=== PATIENT | male | born 1950 | race Caucasian/White ===

== ENCOUNTER 2019-11-01 05:23 | Day surgery (SDC) | payer MEDICARE, OTHER ==
[2019-11-01] VITALS (7 sets, daily range): BP systolic 111–130; BP diastolic 61–69; PULSE 58–74; TEMP 98–98.1
[~2019-11-01] VITALS: Ht 177.8 cm; Wt 96.6 kg
[~2019-11-01 05:23] MED LIST: ASPIRIN 81M81 MG/TA2 PO; ELIQUIS 5MG PO; FLEXERIL 1010 MG/TAB PO; LIPITOR 80MG80 MG PO; LOPRESSOR 225 MG/TAB PO; NORCO 325 MG-51 TAB PO; PLAVIX 75MG TAB75 MG PO; VALIUM 5MG T5 MG/TAB PO; VASOTEC 2.2.5 MG/TAB PO; ZOCOR 80MG80 MG PO
[2019-11-01] MEDS ORDERED: GLUCOPHAGE500 MG/TAB PO (05:45)
[2019-11-01] MEDS ORDERED: COLACE 100100 MG/CAP PO (08:48)
[2019-11-01] MEDS ORDERED: ZOFRAN 4MG T4 MG/TAB PO (08:48)
[2019-11-01] MEDS ORDERED: PERCOCET 325 MG1 TA2 PO (08:48)
--- NOTE | 2019-11-01 08:55 | NUR ---
The patient arrived back to [facility] from the recovery room at this time. The patient appears alert and oriented and denies any pain or nausea at this time. The patient was given some grape juice and a muffin at this time. The patient's post operative vital signs were started at this time. The patient has oxygen in place at 2 L per nasal cannula. The patient's was brought back to be at his bedside. Call light is within reach. Will continue to monitor the patient.
--- NOTE | 2019-11-01 09:10 | NUR ---
The patient appears to be tolerating the food and drink well. The patient's vital signs appear stable. The patient has an abductor sling in place to his right arm that appears intact. The patient denies any pain or nausea at this time.
--- NOTE | 2019-11-01 09:25 | NUR ---
The patient has finished his food and drink and appeared to tolerate it well. The patient denies wanting anything further to eat or drink at this time. Will continue to monitor the patient.
--- NOTE | 2019-11-01 09:40 | NUR ---
The patient's oxygen was weaned down to 1 L per nasal cannula. The patient's remains at his bedside. Call light is within reach. Will continue to monitor the patient.
--- NOTE | 2019-11-01 10:20 | NUR ---
The patient's IV was INT'd and he ambulated to the bathroom with the stand by assistance of one nurse and appeared to tolerate the activity well. The patient voided without dfficulty and voices a desire to be discharged home.
--- NOTE | 2019-11-01 10:40 | NUR ---
Discharge instructions were reviewed with the patient and his at this time. They both verbalized understanding and have no questions for the nurse at this time. The patient's IV to his left hand was removed and a pressure dressing was applied to the site. The nurse instructed the patient to get dressed and notify the staff when he is ready to be escorted out.
--- NOTE | 2019-11-01 10:55 | NUR ---
The patient was escorted out via wheelchair to a private vehicle by REYNA Cardona. The patient's belongings and discharge paperwork were sent with him. The patient's is present to drive him home.
== END 2019-11-01 10:55 | disposition home or self-care (01) ==
LOC: SDCO 05:23
DX: M75.101 Unspecified rotator cuff tear or rupture of right shoulder, not specified as traumatic (principal); E11.9 Type 2 diabetes mellitus without complications; E78.00 Pure hypercholesterolemia, unspecified; M81.0 Age-related osteoporosis without current pathological fracture; Z95.5 Presence of coronary angioplasty implant and graft; Z86.73 Personal history of transient ischemic attack (TIA), and cerebral infarction without residual deficits; I11.9 Hypertensive heart disease without heart failure; Z83.3 Family history of diabetes mellitus; Z82.49 Family history of ischemic heart disease and other diseases of the circulatory system; Z82.3 Family history of stroke; Z79.82 Long term (current) use of aspirin; Z79.01 Long term (current) use of anticoagulants; Z79.84 Long term (current) use of oral hypoglycemic drugs; S43.431A Superior glenoid labrum lesion of right shoulder, initial encounter
CPT/HCPCS: A4619; C1713; J0171; J0690; J1100; J2250; J2405; J2704; J2795; J3010; J7120

== ENCOUNTER → 2019-11-16 | Outpatient (CLI) | payer MEDICARE, OTHER ==
[~2019-11-16] MED LIST changes: +COLACE 100100 MG/CAP PO; +GLUCOPHAGE500 MG/TAB PO; +PERCOCET 325 MG1 TA2 PO; +ZOFRAN 4MG T4 MG/TAB PO
== END ==
LOC: COL.RAD 09:19
DX: M18.9 Osteoarthritis of first carpometacarpal joint, unspecified (principal)
CPT/HCPCS: J3301; Q9967

== ENCOUNTER → 2021-01-01 | Outpatient (CLI) | payer MEDICARE, OTHER ==
[2021-01-01 09:09] LABS: BASO # 0.1 (0.0-0.2); BASO % 1.2 % (0.0-2.0); EOS # 0.4 (0.0-0.7); EOS % 4.9 % (0-4.0); GRAN # 4.2 (1.4-6.5); GRAN % 50.6 % (42.2-75.2); HEMATOCRIT 44.9 % (42.0-52.0); HEMOGLOBIN 14.7 g/dl (13.5-18.0); LYMPH # 2.9 (1.2-3.4); LYMPH % 34.4 % (20.0-51.0); MEAN CELL VOLUME 88 fl (80.0-100.0); MEAN CORPUSCULAR HEMOGLOBIN 29 pg (27.0-31.0); MEAN CORPUSCULAR HGB CONC 33 g/dl (33.0-37.0); MEAN PLATELET VOLUME 10.1 fl (7.4-10.4); MONO # 0.7 (0.1-0.6); MONO % 8.3 % (1.7-9.3); PLATELET COUNT 191 K/mm3 (130-400); RED BLOOD COUNT 5.11 M/mm3 (4.20-5.60); REDCELL DISTRIBUTION WIDTH-CV 13.5 % (11.5-14.5)
[2021-01-01 09:25] LABS: ALBUMIN 4.2 gm/dL (3.5-5.0); BILIRUBIN,TOTAL 0.6 mg/dL (0.0-1.0); CALCIUM 9.2 mg/dL (8.4-10.2); CHOLESTEROL RISK RATIO 3.4; CREATININE, serum 0.86 (0.66-1.25); POTASSIUM 4.2 mmol/L (3.4-5.0); TOTAL PROTEIN 7.2 gm/dL (6.4-8.2)
== END | disposition still patient (30) ==
LOC: COL.LAB 07:58
PROVIDERS: Family Medicine
DX: Z12.5 Encounter for screening for malignant neoplasm of prostate (principal); E11.9 Type 2 diabetes mellitus without complications; E78.00 Pure hypercholesterolemia, unspecified

== ENCOUNTER 2021-10-01 05:36 | Day surgery (SDC) | payer MEDICARE, OTHER ==
[~2021-10-01] VITALS: Ht 177.8 cm; Wt 41.9 kg
[2021-10-01] VITALS (11 sets, daily range): BP systolic 95–127; BP diastolic 57–76; PULSE 48–77; TEMP 97.9–98.3
--- NOTE | 2021-10-01 05:45 | NUR ---
PATIENT ADMITTED PER AMBULATION TO [facility] UNIT ACCOMPANIED BY . PATIENT IS ALERT AND ORIENTED X 4. CONSENT EXPLAINED AND PATIENT SIGNED. ASSESSMENT COMPLETED SEE PHYSICIAL ASSESSMENT. LEFT LEG CLEANED PER PROTOCOL AND VERONICA HOSE PLACED ON RIGHT LEG.
[2021-10-01] MEDS ORDERED: NATURAL IRON65 MG (05:52)
[2021-10-01] MEDS ORDERED: FOLIC ACID 11 MG/TA1 PO (05:52)
[2021-10-01] MEDS ORDERED: VITAMINC500CH (05:53)
--- NOTE | 2021-10-01 10:01 | NUR ---
PT TO ROOM 331 PER BED WITH REPORT FROM KALPANA ORELLANA PACU @2338. PT IS A/O X3, LUNGS CTA. BOWEL SOUNDS PRESENT. ICE APPLIED TO LEFT HIP. IV TO LH. PTS AT BEDSIDE. ORIENTED PT AND TO ROOM. AND ROOM SERVICE. VSS. DRESSING TO LEFT HIP CDI. WITH OCCLUSIVE TAPE OVER INCISON.SITE.
--- NOTE | 2021-10-01 13:00 | NUR ---
PT REPORTING INCREASING PAIN. PO PAIN MEDS PROVIDED PER ORDERS AND PT REFUSING NARCOTIC PAIN MEDS AT THIS TIME.
--- NOTE | 2021-10-01 20:30 | NUR ---
PATIENT IS ALERT AND ORIENTED X4. PATIENT HAS DURAN BANDAGE TO LEFT KNEE AND ICE TO KNEE. PATIENT ON GENERAL DIET. PATIENT HAS SCDS AND VERONICA HOSE ON BILATERAL LOWER EXTREMITIES. PATIENT RATING PAIN 7/10 BUT REFUSING NARCOTICS. TORADOL GIVEN PER ORDERS. PATIENT HAS IV TO LEFT HAND. PATIENT DENIES FURTHER NEEDS AT THIS TIME. CALL LIGHT WITHIN REACH. HEAD TO TOE ASSESSMENT COMPLETE.
--- NOTE | 2021-10-01 21:30 | NUR ---
PATIENT ABLE TO GO ON WALK WITH ACCOUNT SERVICES SPECIALIST. WALKED 30 FEET. STEADY GAIT WITH SOME PAIN. PATIENT BACK TO BED AFTER WALK.
[2021-10-02 04:08] VITALS: BP 120/62; PULSE 67; TEMP 98
--- NOTE | 2021-10-02 05:59 | NUR ---
PATIENT SLEPT MOST OF NIGHT. PAIN MEDS GIVEN PER ORDERS. NO FURTHER NEEDS AT THIS TIME. WILL REPORT TO DAYSHIFT.
[2021-10-02 06:38] LABS: HEMATOCRIT 35.9 % (42.0-52.0); HEMOGLOBIN 11.8 g/dl (13.5-18.0)
[2021-10-02 07:15] VITALS: BP 115/75; PULSE 73; TEMP 98.2
--- NOTE | 2021-10-02 09:10 | NUR ---
sitting up in chair visiting with , full assessment completed, denies pain or needs at this time
--- NOTE | 2021-10-02 10:12 | NUR ---
clay processing factory worker met with patient and his spouse to discuss discharge planning. Patient states he will return home where he resides with his spouse. Patient has crutches and a stool riser at home. Patient states he has outpatient physical therapy arranged and denies further concerns for returning home. Patient stated he has advance directives and worker provides a copy of a durable power of assistant city attorney for health care as patient states he may need to make another one. Worker provided information on advance directives. Patient's primary care provider is Dr Lennon in [place] and denies difficulty obtaining his prescriptions. Patient plans discharge to home this date.
[2021-10-02 11:15] VITALS: BP 125/68; PULSE 62; TEMP 98.2
--- NOTE | 2021-10-02 11:40 | NUR ---
medicated with roxicodone 5mg 1 tab for c/os pain 05/09
--- NOTE | 2021-10-02 12:19 | NUR ---
continues to c/o pain 05/09 after 5mg roxicodone, medicated with additional 5mg roxicodone po at this time
--- NOTE | 2021-10-02 13:00 | NUR ---
continues to c/o pain after additional roxicodone, medicated with scheduled toradol 15mg IV, physical therapy in to work with patient
--- NOTE | 2021-10-02 13:52 | NUR ---
returned to room after working with therapy and into bed to rest, states pain is so much better now, is talking with occupational therapy about ADLs
--- NOTE | 2021-10-02 14:45 | NUR ---
states he thinks it would be better if he waited to go home until tomorrow because of his pain, he thinks the pain is increasing and would like to get up and take a walk,
--- NOTE | 2021-10-02 14:58 | NUR ---
ambulating in miguel with RECORDS MANAGEMENT COORDINATOR
[2021-10-02 16:00] VITALS: BP 127/68; PULSE 70; TEMP 98.3
--- NOTE | 2021-10-02 18:41 | NUR ---
bedside shift report given to REYNA Wright
--- NOTE | 2021-10-02 19:59 | NUR ---
PT RESTING IN BED. PAIN LEVEL WAS A 5/ BUT NOW 8/10. SEE MAR FOR TORODOL GIVEN. AT BEDSIDE. CALL LIGHT IN REACH.
[2021-10-02 21:34] VITALS: BP 125/80; PULSE 69; TEMP 98.2
--- NOTE | 2021-10-02 21:40 | NUR ---
PT HAVING NO RELIEF FROM TORODOL AND ROXICODONE. PAGED TABITHA PAGAN. WAITING FOR CALL BACK.
--- NOTE | 2021-10-02 22:35 | NUR ---
NEW ORDERS RECEIVED FROM TABITHA FUNG. SEE MAR FOR PAIN MEDS GIVEN.
--- NOTE | 2021-10-02 22:45 | NUR ---
PT RELATES LT KNEE SPASM PAIN FROM A LEVEL 10/10 TO 7/10. SEE MAR FOR REPEAT ROXYCODONE.
--- NOTE | 2021-10-02 23:23 | NUR ---
PT RESTING NOW. NO DISTRESS.
--- NOTE | 2021-10-02 23:50 | NUR ---
PT RELATED LLE MUSCLE SPASM ABRUPTLY WOKE HIM AND NOW PAIN IS 9/10. SEE MAR FOR PAION MED GIVEN.
[2021-10-03 00:15] VITALS: BP 138/81; PULSE 87; TEMP 97.9
[2021-10-03 04:14] VITALS: BP 133/75; PULSE 69; TEMP 98.1
[2021-10-03 06:39] LABS: HEMOGLOBIN 11.9 g/dl (13.5-18.0)
[2021-10-03 06:41] LABS: HEMATOCRIT 35.8 % (42.0-52.0)
[2021-10-03 07:33] VITALS: BP 128/64; PULSE 79; TEMP 98.3
[2021-10-03 12:35] VITALS: BP 113/48; PULSE 79; TEMP 98.8
== END 2021-10-03 15:36 | disposition home or self-care (01) ==
LOC: SDCO 05:36 → SURG 10:00 → SDCO 10-03 15:36
PROVIDERS: Orthopaedic Surgery Sports Medicine
DX: M17.12 Unilateral primary osteoarthritis, left knee (principal); E78.5 Hyperlipidemia, unspecified; M19.90 Unspecified osteoarthritis, unspecified site; G89.29 Other chronic pain; G62.9 Polyneuropathy, unspecified; E11.9 Type 2 diabetes mellitus without complications; E78.00 Pure hypercholesterolemia, unspecified; I12.9 Hypertensive chronic kidney disease with stage 1 through stage 4 chronic kidney disease, or unspecified chronic kidney disease; E11.22 Type 2 diabetes mellitus with diabetic chronic kidney disease; N18.2 Chronic kidney disease, stage 2 (mild); I21.9 Acute myocardial infarction, unspecified; I25.10 Atherosclerotic heart disease of native coronary artery without angina pectoris; I63.9 Cerebral infarction, unspecified; I48.0 Paroxysmal atrial fibrillation; Z79.82 Long term (current) use of aspirin; Z79.899 Other long term (current) drug therapy; Z79.01 Long term (current) use of anticoagulants; Z79.84 Long term (current) use of oral hypoglycemic drugs; Z83.3 Family history of diabetes mellitus
CPT/HCPCS: OP; A9284; C1713; C1776; J0690; J1170; J1885; J2250; J2270; J2405; J2704; J2795; J3010; J7030

== ENCOUNTER 2022-05-20 15:51 | Inpatient (IN) | payer MEDICARE, OTHER ==
[~2022-05-20] VITALS: Ht 177.8 cm; Wt 84.8 kg
[~2022-05-20 15:51] MED LIST changes: +FOLIC ACID 11 MG/TA1 PO; +NATURAL IRON65 MG; +VITAMINC500CH
[2022-05-23] VITALS (11 sets, daily range): BP systolic 98–147; BP diastolic 51–88; PULSE 47–86; TEMP 97.2–98.5
[2022-05-23] MEDS ORDERED: ASPIRIN E.C. 8181 MG PO (06:11)
[2022-05-23] MEDS ORDERED: GLUCOPHAGE1000 MG PO (06:11)
[2022-05-23] MEDS ORDERED: LOVENOX 8080 MG/0.8 SQ (06:12)
--- NOTE | 2022-05-23 10:20 | NUR ---
arrived in room per bed from PACU, awake and alert, IV infusing and placed on pump at 100ml/hr, on room air and O2 sat 100%, bulky dressing to left knee CD&I, SCDS on bilaterally and VERONICA hose on right leg, has sensation to toes and is able to move toes, reminded him he does not have a catheter and if needs to void to call for help, verbalizes understanding, denies needs, at bedside
--- NOTE | 2022-05-23 10:30 | NUR ---
given sips of water and tolerates well
--- NOTE | 2022-05-23 11:00 | NUR ---
REYNA George AIV in to place PICC
--- NOTE | 2022-05-23 11:21 | NUR ---
states is now starting to have throbbing pain in knee, medicated with roxicodone 5mg po
[2022-05-23 11:36] LABS: CREATININE, serum 0.8 mg/dL (0.72-1.25)
--- NOTE | 2022-05-23 11:40 | NUR ---
states pain is increasing, medicated with dilaudid 0.5mg slow IV
--- NOTE | 2022-05-23 11:50 | NUR ---
Vancomycin Initial Dosing Pharmacy Note Ordering provider: Valeriano Arreaga MD Indication/duration: septic tka LABS: SCr 0.8, CrCl~76, GFR 88 Recommendation: Vancomycin 1 gm IV q12h. Pharmacy will continue to closely monitor and check a trough on 05/25/22. Maintenance dose: 1 gram every 12 hours Trough goal: 15-20 ug/mL
--- NOTE | 2022-05-23 12:00 | NUR ---
PICC line placed and IV antibiotic started, states pain is a little better after toradol
--- NOTE | 2022-05-23 12:05 | NUR ---
continues to c/o unbearable pain to left knee, medicated with scheduled toradol 15mg slow IV
--- NOTE | 2022-05-23 13:06 | NUR ---
bedside shift report given to REYNA Boston
--- NOTE | 2022-05-23 13:20 | NUR ---
Pt doing okay at this time, reports pain is tolerable. Left leg is elevated on a pillow with ice pack in place. Dressing and trever wrap, CDI. Lungs clear and heart rate regular with good pedal pulses. PICC line to right upper arm. INT to left wrist. Pts is at bedside. Pt has voided without difficulty and tolerating general diet
--- NOTE | 2022-05-23 14:42 | NUR ---
Pt rang out wanting pain medication. Pt appeared to be in significant amount of pain with labored breathing. Asked him if his pain came on all of a sudden. He stated yes and no. He reported that he tries to not take narcotics. Educated that it is better to stay on top of the pain vs it getting out of control. Pt stated that he understood how pain medication worked. PRN IV pain medication given at this time
--- NOTE | 2022-05-23 17:07 | NUR ---
Pt still have complaints of pain even after 10mg of Roxicodone. KENTON Whitt notified, new orders received
--- NOTE | 2022-05-23 21:19 | NUR ---
PT RESTING IN BED. PAIN MANAGEMENT UNDER CONTROL WITH NARCOTICS. LT KNEE DRSG CDI. GOOD SENSATION TO TOES. ICE TO LT KNEE. CALL LIGHT IIN REACH
[2022-05-24 01:21] VITALS: BP 118/69; PULSE 66; TEMP 98.8
[2022-05-24 04:32] VITALS: BP 122/71; PULSE 91; TEMP 98.6
[2022-05-24 07:11] LABS: HEMATOCRIT 30.7 % (42.0-52.0); HEMOGLOBIN 9.9 g/dl (13.5-18.0)
[2022-05-24 07:30] LABS: CREATININE, serum 0.84 mg/dL (0.72-1.25)
[2022-05-24 08:00] VITALS: BP 107/58; PULSE 67; TEMP 98.7
--- NOTE | 2022-05-24 09:00 | NUR ---
Pt doing okay this morning. States his pain is more under control. Discussed his options for laxatives as he stated he has issues with constipation. Also reminded him that he is not to put weight on his left leg. Pt has a way of getting in to bed that he states works for him. He does raise the bed almost waist high. Pt reports that his bed at home is that high. Dressing to left leg is CDI.
--- NOTE | 2022-05-24 11:30 | NUR ---
Initial visit; Patient and his are interesting people. He is originally from [place] and a retired OBGYN and his is from [facility] and a Bio Cheesemaker Helper who worked with him at his long Practice here in [place], [place], having begun his Education here at [facility]. Patient wonderful to talk with and his health appears to be better. Patient thanked Fire Management Specialist profusely when she thanked him for doing so much for women through his Practice and in his life in general. H asked that Fire Management Specialist continue to pray for him to our Creator. Patient is Spiritism.
[2022-05-24 11:49] VITALS: BP 100/60; PULSE 63; TEMP 98.5
--- NOTE | 2022-05-24 13:00 | NUR ---
Pt continues to do well. Oral pain medication working well for him. Pt denies any needs, will continue to monitor
[2022-05-24 15:28] VITALS: BP 102/61; PULSE 86; TEMP 98.5
--- NOTE | 2022-05-24 16:48 | NUR ---
Pt having complaints of feeling constipated. Discussed what options he has. Called Brian FUNG for new orders. Orders entered and MOM given. PRN pain medication given at this time as well. Gave pt prune juice per request. Call light within reach
--- NOTE | 2022-05-24 20:00 | NUR ---
PT RESTING IN BED. PT REPORTS GOOD PAIN RELEIF TONIGHT. NO NEEDS AT THIS TIME. CALL LIGHT IN REACH.
[2022-05-24 23:52] VITALS: BP 95/58; PULSE 71; TEMP 98.7
[2022-05-25 04:34] VITALS: BP 95/57; PULSE 62; TEMP 98.7
[2022-05-25 08:00] VITALS: BP 126/56; PULSE 67; TEMP 98.4
[2022-05-25 08:14] LABS: HEMOGLOBIN 10.2 g/dl (13.5-18.0)
[2022-05-25 08:15] LABS: HEMATOCRIT 31.6 % (42.0-52.0)
[2022-05-25 08:28] LABS: CREATININE, serum 1.89 mg/dL (0.72-1.25)
[2022-05-25 12:00] VITALS: BP 107/54; PULSE 68; TEMP 98.2
--- NOTE | 2022-05-25 15:06 | NUR ---
SW met with pt to complete intake. Pt lives at home with spouse, Sirena [phone]. Pt is independent with ADLs, does use crutches from knee surgery. Pt pcp is Dr. Jimenez and gets medication from [facility] and has no trouble with obtaining cost. No other needs stated at this time. DC: Home w/ Out Pt PT
[2022-05-25 16:00] VITALS: BP 97/58; PULSE 66; TEMP 98.1
[2022-05-25 20:00] VITALS: BP 133/55; PULSE 68; TEMP 98.1
[2022-05-25 23:57] VITALS: BP 110/59; PULSE 67; TEMP 98.2
[2022-05-26 04:26] VITALS: BP 102/53; PULSE 56; TEMP 98.2
[2022-05-26 06:38] LABS: HEMOGLOBIN 9.1 g/dl (13.5-18.0)
[2022-05-26] MEDS ORDERED: VANCO 1 GR1 GM/250 M IV (06:42)
[2022-05-26] MEDS ORDERED: CEFTRIAXON2 GM/50 ML IV (06:43)
--- NOTE | 2022-05-26 06:56 | NUR ---
up and about in room independently, bedside shift report received from REYNA Jefferson
[2022-05-26 06:57] LABS: CREATININE, serum 1.72 mg/dL (0.72-1.25)
[2022-05-26 07:25] VITALS: BP 105/61; PULSE 61; TEMP 98.2
--- NOTE | 2022-05-26 07:50 | NUR ---
full assessment comopleted, see interventions for further info, states pain is currently controlled and less than 5/10
--- NOTE | 2022-05-26 09:32 | NUR ---
Follow-up visit; Patient thanked Private Duty Aide for stopping and keeping him in her prayers which seem to be working. Patient is doing well, he says. His is present also. Private Duty Aide continues to improve.
--- NOTE | 2022-05-26 09:45 | NUR ---
left message at orthopaedic office regarding need for oxycontin prescription and order for CMP in 2-3 days
--- NOTE | 2022-05-26 10:22 | NUR ---
ambulating in miguel with physical therapy
--- NOTE | 2022-05-26 10:48 | NUR ---
plier worker presented patient with the [facility].IM form. Patient's present at bedside. All questions answered and the patient verbalized his agreement with discharge plan for today. Signed original placed in the patients chart and copy provided back to the patient. Confirmed with him that he has outpatient therapy scheduled through [facility]. Patient is going to need IV antibiotics q24 hrs until 07/06 with weekly labs. Patient would like [facility] do [facility] through [facility]. Contact made with [facility] with the patient's informations. They are able to put him on for 0800 starting on 05/27. Patient's information/orders left with Claudia in [facility]. Patient's RN updated. Discharge plan: Home w/ OP therapy.
[2022-05-26 11:27] VITALS: BP 129/73; PULSE 63; TEMP 98.7
--- NOTE | 2022-05-26 12:00 | NUR ---
discharge instructions given to patient and his , verbalizes understanding
--- NOTE | 2022-05-26 12:15 | NUR ---
discharged per WC
--- NOTE | 2022-05-26 19:33 | NUR ---
RECEIVED CHANGE OF SHIFT REPORT FROM DAY SHIFT RN.
--- NOTE | 2022-05-26 20:03 | NUR ---
PATIENT RETURNED TO UNIT FOR EVENING DOSE OF IV ABX AND TO BE DISMISSED AGAIN AFTER IV ABX INFUSED. PATIENT CURRENTLY HAS NO CONCERNS/COMPLAINTS. PICC LINE INFUSING ABX WITH NO PROBLEMS AT THIS TIME. FAMILY MEMBER PRESENT IN ROOM WHILE PATIENT RECEIVING IV ABX AND TO TAKE PATIENT BACK HOME PER POV.
[2022-05-26 20:12] VITALS: BP 130/55; PULSE 58; TEMP 98.2
--- NOTE | 2022-05-26 21:00 | NUR ---
PATIENT DISCHARGED AFTER IV ABX TREATMENT INFUSION COMPLETED. PATIENT STATES HE ALREADY HAS HIS IV TREATMENT SCHEDULE FOR OUTPT IV THERAPY TO START 05/27. PATIENT AMBULATED OFF UNIT PER PATIENT REQUEST WITH NO FURTHER NEEDS OR CONCERNS.
[2022-06-01] MEDS ORDERED: VANCOCIN HCL1 GM IV (07:29)
== END 2022-05-26 21:00 | disposition home or self-care (01) | DRG 464 ==
LOC: INPTSU 05-23 05:34 → SURG 05-23 05:34
PROVIDERS: ADMIT Orthopaedic Surgery Sports Medicine
PROC: 0SPD0JZ Removal of Synthetic Substitute from Left Knee Joint, Open Approach (ICD-10-PCS; 2022-05-23)
PROC: 0SHD08Z Insertion of Spacer into Left Knee Joint, Open Approach (ICD-10-PCS; principal; 2022-05-23 07:30)
DX: T84.54XA Infection and inflammatory reaction due to internal left knee prosthesis, initial encounter (principal); M00.9 Pyogenic arthritis, unspecified; E78.5 Hyperlipidemia, unspecified; I25.10 Atherosclerotic heart disease of native coronary artery without angina pectoris; G89.29 Other chronic pain; M19.90 Unspecified osteoarthritis, unspecified site; I12.9 Hypertensive chronic kidney disease with stage 1 through stage 4 chronic kidney disease, or unspecified chronic kidney disease; E11.22 Type 2 diabetes mellitus with diabetic chronic kidney disease; N18.2 Chronic kidney disease, stage 2 (mild); I48.91 Unspecified atrial fibrillation; E11.42 Type 2 diabetes mellitus with diabetic polyneuropathy; Y83.8 Other surgical procedures as the cause of abnormal reaction of the patient, or of later complication, without mention of misadventure at the time of the procedure; Y92.89 Other specified places as the place of occurrence of the external cause; Z86.73 Personal history of transient ischemic attack (TIA), and cerebral infarction without residual deficits; I25.2 Old myocardial infarction; Z79.01 Long term (current) use of anticoagulants; Z95.5 Presence of coronary angioplasty implant and graft; Z23 Encounter for immunization
CPT/HCPCS: A9284; C1713; C1751; C1776; J0696; J1100; J1170; J1885; J2250; J2405; J2543; J2704; J3010; J3260; J3370; J7050; J7120

== ENCOUNTER → 2022-05-29 | Outpatient (RCR) | payer MEDICARE, OTHER ==
[2022-05-27 08:11] VITALS: BP 132/73; PULSE 67; TEMP 98.6
--- NOTE | 2022-05-27 09:22 | NUR ---
Follow-up; Patient and his , Sirena were taking the elevator for physical therapy. Superintendent Pipelines learned that Akash is doing ok and thanked her for wishing him well and Blessings.
[2022-05-27 18:47] VITALS: BP 118/62; PULSE 68; TEMP 98.5
[2022-05-28 08:27] LABS: ALBUMIN 2.9 gm/dL (3.4-4.8); BILIRUBIN,TOTAL 0.4 mg/dL (0.2-1.2); CALCIUM 8.9 mg/dL (8.4-10.2); CREATININE, serum 1.62 mg/dL (0.72-1.25); POTASSIUM 4.5 mmol/L (3.5-4.5)
[2022-05-28 08:45] VITALS: BP 123/72; PULSE 58; TEMP 97.6
[2022-05-28 18:19] VITALS: BP 113/63; PULSE 68; TEMP 98.7
[~2022-05-29] MED LIST changes: +ASPIRIN E.C. 8181 MG PO; +CEFTRIAXON2 GM/50 ML IV; +CUBICIN 500MG500 MG IV; +GLUCOPHAGE1000 MG PO; +LOVENOX 8080 MG/0.8 SQ; +ROXICODONE 55 MG/TAB PO; +VANCO 1 GR1 GM/250 M IV; +VANCOCIN HCL1 GM IV
[2022-05-29 08:45] VITALS: BP 119/69; PULSE 66; TEMP 98.5
[2022-05-29 19:15] VITALS: BP 125/75; PULSE 65; TEMP 98.6
== END | disposition still patient (30) ==
LOC: EUO
PROVIDERS: Orthopaedic Surgery Sports Medicine
DX: C90.02 Multiple myeloma in relapse (principal)
CPT/HCPCS: J0696; J3370; J7050

== ENCOUNTER 2022-06-18 07:30 | Outpatient (RCR) | payer MEDICARE, OTHER ==
[2022-05-30 07:58] VITALS: BP 110/63; PULSE 59; TEMP 98.3
[2022-05-30 18:50] VITALS: BP 125/70; PULSE 60; TEMP 98.2
[2022-05-31 07:30] VITALS: BP 117/68; PULSE 64; TEMP 98.3
[2022-05-31 08:59] LABS: CREATININE, serum 1.48 mg/dL (0.72-1.25)
[2022-05-31 18:10] VITALS: BP 133/57; PULSE 60; TEMP 98.1
--- NOTE | 2022-06-01 07:12 | NUR ---
Vancomycin Follow-up Pharmacy Note Current regimen: VANCOMYCIN 500MG Q12H Vancomycin trough: 22.8 Adjustments: SWITCH TO VANCOMYCIN 1G DAILY. WATCH SCR FOR CHANGES AND MONITOR TROUGH CLINICALLY INDICATED
[2022-06-01 07:32] VITALS: BP 123/69; PULSE 71; TEMP 98.7
--- NOTE | 2022-06-02 07:30 | NUR ---
pt has double lumen ports, red port flushed well with blood return. unable to flush purple port, moved pt arm, changed cap and had him cough with no success, will leave information for IV services to tomorrow to evaluate if port flushes.
[2022-06-02 09:04] VITALS: BP 126/69; PULSE 70; TEMP 98.8
[2022-06-03 07:35] LABS: BASO # 0.1 K/mm3 (0.0-0.2); EOS # 0.9 K/mm3 (0.0-0.7); EOS % 8.1 % (0.0-4.0); GRAN # 6.8 K/mm3 (1.4-6.5); GRAN % 62.7 % (42.2-75.2); HEMOGLOBIN 10.1 g/dl (13.5-18.0); LYMPH # 2.1 K/mm3 (1.2-3.4); LYMPH % 19.2 % (20.0-51.0); MEAN CELL VOLUME 81 fl (80.0-100.0); MEAN CORPUSCULAR HEMOGLOBIN 26 pg (27-31); MEAN CORPUSCULAR HGB CONC 32 g/dl (33.0-37.0); MEAN PLATELET VOLUME 9.6 fl (7.4-10.4); MONO # 0.9 K/mm3 (0.1-0.6); MONO % 8.2 % (1.7-9.3); PLATELET COUNT 310 K/mm3 (130-400); RED BLOOD COUNT 3.93 M/mm3 (4.20-5.60); REDCELL DISTRIBUTION WIDTH-CV 15.3 % (11.5-14.5)
[2022-06-03 07:41] LABS: HEMATOCRIT 31.9 % (42.0-52.0)
[2022-06-03 07:49] VITALS: BP 103/59; PULSE 70; TEMP 98.2
[2022-06-03 07:52] LABS: ALBUMIN 3.4 gm/dL (3.4-4.8); ALKALINE PHOSPHATASE 76 U/L (40-150); ANION GAP 14 mmol/L (7-16); AST,SGOT 23 U/L (5-34); BILIRUBIN,TOTAL 0.5 mg/dL (0.2-1.2); BLOOD UREA NITROGEN 24 mg/dL (8-26); C-REACTIVE PROTEIN 1.54 mg/dL (0.00-0.50); CALCIUM 9.6 mg/dL (8.4-10.2); CARBON DIOXIDE 24 mmol/L (23-31); CHLORIDE 103 mmol/L (98-107); CREATININE, serum 1.55 mg/dL (0.72-1.25); GLUCOSE 193 mg/dL (70-99); POTASSIUM 4.2 mmol/L (3.5-4.5); SODIUM 141 mmol/L (136-145); TOTAL PROTEIN 7.8 gm/dL (6.2-8.1)
[2022-06-03 07:54] LABS: ALANINE AMINOTRANSFERASE < 6 U/L (0-55)
[2022-06-03 08:18] LABS: ERYTHROCYTE SEDIMENTATION RATE 65 mm/hr (0-30)
--- NOTE | 2022-06-04 11:00 | NUR ---
Notified by ID office abx changing,orders to be sent.
[2022-06-04 12:38] VITALS: BP 116/71; PULSE 72; TEMP 98.3
[2022-06-05 08:30] VITALS: BP 106/62; PULSE 61; TEMP 98.5
[2022-06-06 08:27] VITALS: BP 124/71; PULSE 83; TEMP 98.2
[2022-06-07 08:47] VITALS: BP 102/65; PULSE 62; TEMP 98.5
[2022-06-08 08:12] VITALS: BP 95/53; PULSE 65; TEMP 98.6
[2022-06-09 08:16] VITALS: BP 114/62; PULSE 61; TEMP 97.8
[2022-06-09 08:25] LABS: HEMOGLOBIN 10.1 g/dl (13.5-18.0); MEAN CELL VOLUME 83 fl (80.0-100.0); MEAN CORPUSCULAR HEMOGLOBIN 26 pg (27-31); MEAN CORPUSCULAR HGB CONC 31 g/dl (33.0-37.0); MEAN PLATELET VOLUME 9.7 fl (7.4-10.4); PLATELET COUNT 372 K/mm3 (130-400); RED BLOOD COUNT 3.91 M/mm3 (4.20-5.60); REDCELL DISTRIBUTION WIDTH-CV 15.5 % (11.5-14.5)
[2022-06-09 08:26] LABS: HEMATOCRIT 32.5 % (42.0-52.0)
[2022-06-09 08:41] LABS: ALBUMIN 3.5 gm/dL (3.4-4.8); ALKALINE PHOSPHATASE 88 U/L (40-150); ANION GAP 10 mmol/L (7-16); AST,SGOT 20 U/L (5-34); BILIRUBIN,TOTAL 0.4 mg/dL (0.2-1.2); BLOOD UREA NITROGEN 32 mg/dL (8-26); C-REACTIVE PROTEIN 0.38 mg/dL (0.00-0.50); CALCIUM 9.5 mg/dL (8.4-10.2); CARBON DIOXIDE 24 mmol/L (23-31); CHLORIDE 104 mmol/L (98-107); CREATINE KINASE 50 U/L (30-200); CREATININE, serum 1.42 mg/dL (0.72-1.25); GLUCOSE 123 mg/dL (70-99); POTASSIUM 4.5 mmol/L (3.5-4.5); SODIUM 138 mmol/L (136-145); TOTAL PROTEIN 7.7 gm/dL (6.2-8.1)
[2022-06-09 08:44] LABS: ALANINE AMINOTRANSFERASE < 6 U/L (0-55)
[2022-06-09 09:04] LABS: ERYTHROCYTE SEDIMENTATION RATE 40 mm/hr (0-30)
[2022-06-10 08:10] VITALS: BP 104/62; PULSE 66; TEMP 98.4
[2022-06-11 08:42] VITALS: BP 100/58; PULSE 70; TEMP 97.7
[2022-06-12 08:16] VITALS: BP 102/57; PULSE 63; TEMP 97.8
[2022-06-13 08:33] VITALS: BP 114/66; PULSE 78; TEMP 98.5
[2022-06-14 07:48] VITALS: BP 100/58; PULSE 71; TEMP 97.5
[2022-06-15 07:41] VITALS: BP 104/63; PULSE 61; TEMP 98.5
[2022-06-16 07:40] VITALS: BP 113/69; PULSE 63; TEMP 98.3
[2022-06-16 07:51] LABS: HEMOGLOBIN 10.8 g/dl (13.5-18.0); MEAN CELL VOLUME 83 fl (80.0-100.0); MEAN CORPUSCULAR HEMOGLOBIN 26 pg (27-31); MEAN CORPUSCULAR HGB CONC 32 g/dl (33.0-37.0); MEAN PLATELET VOLUME 9.7 fl (7.4-10.4); PLATELET COUNT 365 K/mm3 (130-400); RED BLOOD COUNT 4.14 M/mm3 (4.20-5.60); REDCELL DISTRIBUTION WIDTH-CV 15.6 % (11.5-14.5)
[2022-06-16 07:57] LABS: HEMATOCRIT 34.3 % (42.0-52.0)
--- NOTE | 2022-06-16 08:10 | NUR ---
Here for cares. PICC intact right upper arm with unable to flush purple port. red port flushed with normal saline without resistance with good blood return noted. advised to instil cath-luis. EU will obtain an order.
[2022-06-16 08:12] LABS: ALBUMIN 3.7 gm/dL (3.4-4.8); BILIRUBIN,TOTAL 0.5 mg/dL (0.2-1.2); C-REACTIVE PROTEIN 0.78 mg/dL (0.00-0.50); CALCIUM 9.6 mg/dL (8.4-10.2); CREATININE, serum 1.43 mg/dL (0.72-1.25); POTASSIUM 4.5 mmol/L (3.5-4.5); TOTAL PROTEIN 8.1 gm/dL (6.2-8.1)
[2022-06-16 08:25] LABS: ERYTHROCYTE SEDIMENTATION RATE 42 mm/hr (0-30)
--- NOTE | 2022-06-16 08:41 | NUR ---
PICC line was evaluated by TRACI Gautam due to purple lumen not flushing or giving blood return. She states that cath flow order should be obtained. No need for CXR at this time as red lumen is patent. Message left with Dr Arreaga's office to request order.
[2022-06-16 17:34] VITALS: BP 106/67; PULSE 84; TEMP 98.5
[~2022-06-18] VITALS: Ht 177.8 cm; Wt 81.2 kg
[2022-06-18 08:00] VITALS: TEMP 98.4
[2022-06-18] MEDS ORDERED: AMOXICILLIN 50500 MG PO (09:20)
[2022-06-18 14:41] VITALS: BP 97/74; PULSE 65; TEMP 98.4
--- NOTE | 2022-06-18 14:43 | NUR ---
PTS PICC WAS REMOVED PER ORDER BY [facility], PT REMAINED IN OBSERVATION FOR OVER 30 MINUTES AFTER REMOVAL. DISCHARGE EDUCATION GIVEN TO PT, PT VERBALIZES UNDERSTANDING. PT DISCHARGED AMBULATORY WITH CRUTCHES.
== END 2022-06-18 17:11 | disposition still patient (30) ==
LOC: EUO 07:30
PROVIDERS: Orthopaedic Surgery Sports Medicine; Student in an Organized Health Care Education/Training Program
DX: M00.862 Arthritis due to other bacteria, left knee (principal)
CPT/HCPCS: J0696; J0878; J3370; J7040; J7050

== ENCOUNTER 2023-10-26 08:59 | Outpatient (RCR) | payer MEDICARE, OTHER ==
[~2023-10-26] VITALS: Ht 177.8 cm; Wt 85.7 kg
[~2023-10-26 08:59] MED LIST changes: +AMOXICILLIN 50500 MG PO; +ASPIRIN 32325 MG/TAB PO; +CEPHALEXIN500 M1 PO; +DULCOLAX STOOL100 MG PO; +ERGOCALCIFER50000 IU PO; +GLUCOPHAGE XR500 M1 PO; +LEVAQUIN 750MG750 M1 PO; +LOKELMA5 GM PO; +MAXIPIME2 GM IJ; +MERREM VIA500 MG/VIA IV; +MOBIC15 MG PO; +PROBIOTIC BLEN1 EACH PO; +SODIUM BICARBO650 MG PO; +TOPROL XL 25MG25 MG PO; +ZOSYN 3 GM-0.371 PD1 IV; +ZOSYN 4 GM-0.51 PD1 IV
[2023-10-26 09:39] VITALS: BP 130/67; PULSE 55; TEMP 98.8
[2023-10-26 09:44] LABS: BASO # 0.1 K/mm3 (0.0-0.2); BASO % 1.3 % (0.0-2.0); EOS # 0.6 K/mm3 (0.0-0.7); EOS % 7.3 % (0.0-4.0); GRAN # 5.3 K/mm3 (1.4-6.5); GRAN % 61.4 % (42.2-75.2); LYMPH # 1.8 K/mm3 (1.2-3.4); LYMPH % 20.8 % (20.0-51.0); MEAN CELL VOLUME 85 fl (80.0-100.0); MEAN CORPUSCULAR HGB CONC 32 g/dl (33.0-37.0); MEAN PLATELET VOLUME 9.8 fl (7.4-10.4); MONO # 0.8 K/mm3 (0.1-0.6); MONO % 8.9 % (1.7-9.3); PLATELET COUNT 268 K/mm3 (130-400); RED BLOOD COUNT 3.29 M/mm3 (4.20-5.60); REDCELL DISTRIBUTION WIDTH-CV 13.6 % (11.5-14.5)
[2023-10-26 09:45] LABS: HEMATOCRIT 28.1 % (42.0-52.0); HEMOGLOBIN 8.9 g/dl (13.5-18.0); MEAN CORPUSCULAR HEMOGLOBIN 27 pg (27-31)
[2023-10-26 10:01] LABS: ALBUMIN 3.1 gm/dL (3.4-4.8); ALKALINE PHOSPHATASE 55 U/L (40-150); ANION GAP 11 mmol/L (7-16); AST,SGOT 16 U/L (5-34); BILIRUBIN,TOTAL 0.5 mg/dL (0.2-1.2); BLOOD UREA NITROGEN 28 mg/dL (8-26); C-REACTIVE PROTEIN 4.95 mg/dL (0.00-0.50); CALCIUM 9.3 mg/dL (8.4-10.2); CARBON DIOXIDE 24 mmol/L (23-31); CHLORIDE 106 mmol/L (98-107); CREATININE, serum 2.29 mg/dL (0.72-1.25); GLUCOSE 92 mg/dL (70-99); POTASSIUM 4.4 mmol/L (3.5-4.5); SODIUM 141 mmol/L (136-145); TOTAL PROTEIN 7.5 gm/dL (6.2-8.1)
[2023-10-26 10:02] LABS: ALANINE AMINOTRANSFERASE < 6 U/L (0-55)
[2023-10-28 15:01] VITALS: BP 117/64; PULSE 70; TEMP 97.9
[2023-10-29] MEDS ORDERED: MERREM IV1 GM IV (09:15)
== END 2023-10-29 12:53 | disposition home or self-care (01) ==
LOC: EUO 08:59 → EDSTATUS 09:00 → EUO 09:00
PROVIDERS: Hospitalist
DX: T84.54XD Infection and inflammatory reaction due to internal left knee prosthesis, subsequent encounter (principal); M00.9 Pyogenic arthritis, unspecified
CPT/HCPCS: J2185

== ENCOUNTER 2023-11-24 14:30 | Outpatient (RCR) | payer MEDICARE, OTHER ==
[2023-11-02 09:05] VITALS: BP 132/72; PULSE 55; TEMP 97.9
[2023-11-02 09:21] LABS: BASO # 0.1 K/mm3 (0.0-0.2); BASO % 1.4 % (0.0-2.0); EOS # 0.6 K/mm3 (0.0-0.7); EOS % 7.4 % (0.0-4.0); GRAN % 58.4 % (42.2-75.2); LYMPH # 2.1 K/mm3 (1.2-3.4); LYMPH % 24.8 % (20.0-51.0); MEAN CELL VOLUME 85 fl (80.0-100.0); MEAN CORPUSCULAR HGB CONC 32 g/dl (33.0-37.0); MEAN PLATELET VOLUME 9.8 fl (7.4-10.4); MONO # 0.6 K/mm3 (0.1-0.6); MONO % 7.5 % (1.7-9.3); PLATELET COUNT 333 K/mm3 (130-400); RED BLOOD COUNT 3.38 M/mm3 (4.20-5.60); REDCELL DISTRIBUTION WIDTH-CV 13.7 % (11.5-14.5)
[2023-11-02 09:24] LABS: HEMATOCRIT 28.8 % (42.0-52.0); HEMOGLOBIN 9.2 g/dl (13.5-18.0); MEAN CORPUSCULAR HEMOGLOBIN 27 pg (27-31)
[2023-11-02 09:37] LABS: ALBUMIN 3.2 gm/dL (3.4-4.8); ALKALINE PHOSPHATASE 67 U/L (40-150); ANION GAP 10 mmol/L (7-16); AST,SGOT 17 U/L (5-34); BILIRUBIN,TOTAL 0.3 mg/dL (0.2-1.2); BLOOD UREA NITROGEN 34 mg/dL (8-26); C-REACTIVE PROTEIN 1.13 mg/dL (0.00-0.50); CALCIUM 9.3 mg/dL (8.4-10.2); CARBON DIOXIDE 22 mmol/L (23-31); CHLORIDE 110 mmol/L (98-107); CREATININE, serum 1.77 mg/dL (0.72-1.25); GLUCOSE 87 mg/dL (70-99); POTASSIUM 4.3 mmol/L (3.5-4.5); SODIUM 142 mmol/L (136-145); TOTAL PROTEIN 7.5 gm/dL (6.2-8.1)
[2023-11-02 09:38] LABS: ALANINE AMINOTRANSFERASE < 6 U/L (0-55)
[2023-11-02 12:48] LABS: ERYTHROCYTE SEDIMENTATION RATE 58 mm/hr (0-30)
[2023-11-09 09:31] LABS: BASO # 0.1 K/mm3 (0.0-0.2); BASO % 1.4 % (0.0-2.0); EOS # 0.6 K/mm3 (0.0-0.7); GRAN % 46.6 % (42.2-75.2); LYMPH # 2.2 K/mm3 (1.2-3.4); LYMPH % 35.3 % (20.0-51.0); MEAN CELL VOLUME 85 fl (80.0-100.0); MEAN CORPUSCULAR HGB CONC 32 g/dl (33.0-37.0); MEAN PLATELET VOLUME 9.9 fl (7.4-10.4); MONO # 0.5 K/mm3 (0.1-0.6); MONO % 7.4 % (1.7-9.3); PLATELET COUNT 266 K/mm3 (130-400); RED BLOOD COUNT 3.35 M/mm3 (4.20-5.60); REDCELL DISTRIBUTION WIDTH-CV 13.6 % (11.5-14.5)
[2023-11-09 09:34] LABS: HEMATOCRIT 28.3 % (42.0-52.0); MEAN CORPUSCULAR HEMOGLOBIN 27 pg (27-31)
[2023-11-09 09:39] LABS: ERYTHROCYTE SEDIMENTATION RATE 50 mm/hr (0-30)
[2023-11-09 09:41] LABS: COLLECTION METHOD CLEAN CATCH
[2023-11-09 09:42] VITALS: BP 119/75; PULSE 45; TEMP 99.3
[2023-11-09 09:46] LABS: ALBUMIN 3.2 gm/dL (3.4-4.8); ANION GAP 9 mmol/L (7-16); AST,SGOT 19 U/L (5-34); BILIRUBIN,TOTAL 0.5 mg/dL (0.2-1.2); BLOOD UREA NITROGEN 26 mg/dL (8-26); C-REACTIVE PROTEIN 0.26 mg/dL (0.00-0.50); CALCIUM 9.2 mg/dL (8.4-10.2); CARBON DIOXIDE 26 mmol/L (23-31); CHLORIDE 107 mmol/L (98-107); CREATININE, serum 1.55 mg/dL (0.72-1.25); GLUCOSE 88 mg/dL (70-99); POTASSIUM 4.2 mmol/L (3.5-4.5); SODIUM 142 mmol/L (136-145); TOTAL PROTEIN 7.3 gm/dL (6.2-8.1)
[2023-11-09 09:52] LABS: ALANINE AMINOTRANSFERASE < 6 U/L (0-55)
[2023-11-09 10:00] LABS: URINE APPEARANCE Clear (CLEAR/HAZY); URINE BLOOD TRACE-INTACT (NEGATIVE); URINE COLOR Yellow (YELLOW); URINE GLUCOSE Negative (NEGATIVE); URINE KETONE Negative (NEGATIVE); URINE NITRATE Negative (NEGATIVE); URINE PROTEIN(semi-quant) 1+ (NEGATIVE); URINE UROBILINOGEN 0.2 E.U/dL (0.2-1.0)
[2023-11-09 10:05] LABS: ALKALINE PHOSPHATASE 74 U/L (40-150)
[2023-11-09 10:10] LABS: SQUAMOUS EPITHELIAL 0-2 /hpf (0-10); URINE RBC None Seen /hpf (0-2)
[2023-11-16 09:12] VITALS: BP 125/77; PULSE 49; TEMP 97.9
[2023-11-16 09:17] LABS: BASO # 0.1 K/mm3 (0.0-0.2); BASO % 1.7 % (0.0-2.0); EOS # 0.7 K/mm3 (0.0-0.7); EOS % 10.7 % (0.0-4.0); GRAN # 3.2 K/mm3 (1.4-6.5); GRAN % 50.1 % (42.2-75.2); HEMOGLOBIN 10.5 g/dl (13.5-18.0); LYMPH # 1.9 K/mm3 (1.2-3.4); LYMPH % 29.4 % (20.0-51.0); MEAN CELL VOLUME 85 fl (80.0-100.0); MEAN CORPUSCULAR HEMOGLOBIN 27 pg (27-31); MEAN CORPUSCULAR HGB CONC 32 g/dl (33.0-37.0); MEAN PLATELET VOLUME 9.8 fl (7.4-10.4); MONO # 0.5 K/mm3 (0.1-0.6); MONO % 7.8 % (1.7-9.3); PLATELET COUNT 201 K/mm3 (130-400); RED BLOOD COUNT 3.85 M/mm3 (4.20-5.60); REDCELL DISTRIBUTION WIDTH-CV 13.7 % (11.5-14.5)
[2023-11-16 09:18] LABS: HEMATOCRIT 32.7 % (42.0-52.0)
[2023-11-16 09:22] LABS: ERYTHROCYTE SEDIMENTATION RATE 43 mm/hr (0-30)
[2023-11-16 09:34] LABS: ALBUMIN 3.4 gm/dL (3.4-4.8); ALKALINE PHOSPHATASE 80 U/L (40-150); ANION GAP 7 mmol/L (7-16); AST,SGOT 15 U/L (5-34); BILIRUBIN,TOTAL 0.5 mg/dL (0.2-1.2); BLOOD UREA NITROGEN 30 mg/dL (8-26); C-REACTIVE PROTEIN 0.13 mg/dL (0.00-0.50); CALCIUM 9.2 mg/dL (8.4-10.2); CARBON DIOXIDE 24 mmol/L (23-31); CHLORIDE 107 mmol/L (98-107); CREATININE, serum 1.79 mg/dL (0.72-1.25); GLUCOSE 93 mg/dL (70-99); POTASSIUM 4.3 mmol/L (3.5-4.5); SODIUM 138 mmol/L (136-145); TOTAL PROTEIN 7.3 gm/dL (6.2-8.1)
[2023-11-16 09:40] LABS: ALANINE AMINOTRANSFERASE < 6 U/L (0-55)
[~2023-11-24] VITALS: Ht 177.8 cm; Wt 87.6 kg
[~2023-11-24 14:30] MED LIST changes: +MERREM IV1 GM IV
[2023-11-24 14:34] VITALS: BP 117/64; PULSE 60; TEMP 97.6
[2023-11-24 14:51] LABS: MEAN CELL VOLUME 84 fl (80.0-100.0); MEAN CORPUSCULAR HGB CONC 33 g/dl (33.0-37.0); MEAN PLATELET VOLUME 10.2 fl (7.4-10.4); PLATELET COUNT 229 K/mm3 (130-400); RED BLOOD COUNT 3.53 M/mm3 (4.20-5.60)
[2023-11-24 14:54] LABS: HEMATOCRIT 29.6 % (42.0-52.0); HEMOGLOBIN 9.8 g/dl (13.5-18.0); MEAN CORPUSCULAR HEMOGLOBIN 28 pg (27-31)
[2023-11-24 15:11] LABS: ALBUMIN 3.4 gm/dL (3.4-4.8); ALKALINE PHOSPHATASE 87 U/L (40-150); ANION GAP 10 mmol/L (7-16); AST,SGOT 15 U/L (5-34); BILIRUBIN,TOTAL 0.2 mg/dL (0.2-1.2); BLOOD UREA NITROGEN 37 mg/dL (8-26); C-REACTIVE PROTEIN 0.22 mg/dL (0.00-0.50); CALCIUM 9.5 mg/dL (8.4-10.2); CARBON DIOXIDE 23 mmol/L (23-31); CHLORIDE 108 mmol/L (98-107); CREATININE, serum 2.05 mg/dL (0.72-1.25); GLUCOSE 108 mg/dL (70-99); POTASSIUM 4.6 mmol/L (3.5-4.5); SODIUM 141 mmol/L (136-145); TOTAL PROTEIN 7.4 gm/dL (6.2-8.1)
[2023-11-24 15:27] LABS: ALANINE AMINOTRANSFERASE < 6 U/L (0-55)
== END 2023-11-24 16:30 | disposition home or self-care (01) ==
LOC: EUO 14:30
PROVIDERS: Hospitalist; Internal Medicine Nephrology; Student in an Organized Health Care Education/Training Program
DX: T84.54XA Infection and inflammatory reaction due to internal left knee prosthesis, initial encounter (principal)

== ENCOUNTER 2023-12-08 09:00 | Outpatient (RCR) | payer MEDICARE, OTHER ==
[2023-12-01 09:28] VITALS: BP 148/85; PULSE 56; TEMP 97.9
[2023-12-01 09:44] LABS: BASO # 0.1 K/mm3 (0.0-0.2); EOS # 0.4 K/mm3 (0.0-0.7); EOS % 5.8 % (0.0-4.0); GRAN # 3.6 K/mm3 (1.4-6.5); GRAN % 57.4 % (42.2-75.2); HEMATOCRIT 31.5 % (42.0-52.0); HEMOGLOBIN 10.5 g/dl (13.5-18.0); LYMPH # 1.7 K/mm3 (1.2-3.4); LYMPH % 26.9 % (20.0-51.0); MEAN CELL VOLUME 83 fl (80.0-100.0); MEAN CORPUSCULAR HEMOGLOBIN 28 pg (27-31); MEAN CORPUSCULAR HGB CONC 33 g/dl (33.0-37.0); MONO # 0.5 K/mm3 (0.1-0.6); MONO % 8.7 % (1.7-9.3); PLATELET COUNT 227 K/mm3 (130-400); RED BLOOD COUNT 3.78 M/mm3 (4.20-5.60)
[2023-12-01 09:53] LABS: ERYTHROCYTE SEDIMENTATION RATE 39 mm/hr (0-30)
[2023-12-01 10:10] LABS: ALBUMIN 3.5 gm/dL (3.4-4.8); ALKALINE PHOSPHATASE 93 U/L (40-150); ANION GAP 11 mmol/L (7-16); AST,SGOT 17 U/L (5-34); BILIRUBIN,TOTAL 0.5 mg/dL (0.2-1.2); BLOOD UREA NITROGEN 27 mg/dL (8-26); C-REACTIVE PROTEIN 0.29 mg/dL (0.00-0.50); CALCIUM 9.5 mg/dL (8.4-10.2); CARBON DIOXIDE 21 mmol/L (23-31); CHLORIDE 108 mmol/L (98-107); CREATININE, serum 1.65 mg/dL (0.72-1.25); GLUCOSE 88 mg/dL (70-99); POTASSIUM 4.2 mmol/L (3.5-4.5); SODIUM 140 mmol/L (136-145); TOTAL PROTEIN 7.4 gm/dL (6.2-8.1)
[2023-12-01 10:11] LABS: ALANINE AMINOTRANSFERASE < 6 U/L (0-55)
[~2023-12-08] VITALS: Ht 177.8 cm; Wt 87.0 kg
[2023-12-08 09:33] LABS: BASO # 0.1 K/mm3 (0.0-0.2); BASO % 1.7 % (0.0-2.0); EOS # 0.5 K/mm3 (0.0-0.7); EOS % 7.2 % (0.0-4.0); GRAN % 52.7 % (42.2-75.2); HEMOGLOBIN 10.5 g/dl (13.5-18.0); LYMPH # 2.2 K/mm3 (1.2-3.4); LYMPH % 29.1 % (20.0-51.0); MEAN CELL VOLUME 83 fl (80.0-100.0); MEAN CORPUSCULAR HEMOGLOBIN 27 pg (27-31); MEAN CORPUSCULAR HGB CONC 33 g/dl (33.0-37.0); MEAN PLATELET VOLUME 9.9 fl (7.4-10.4); MONO # 0.7 K/mm3 (0.1-0.6); MONO % 8.6 % (1.7-9.3); PLATELET COUNT 263 K/mm3 (130-400); RED BLOOD COUNT 3.85 M/mm3 (4.20-5.60); REDCELL DISTRIBUTION WIDTH-CV 13.9 % (11.5-14.5)
[2023-12-08 09:34] LABS: HEMATOCRIT 31.9 % (42.0-52.0)
[2023-12-08 09:37] VITALS: BP 130/77; PULSE 54; TEMP 97.9
[2023-12-08 09:44] LABS: ALBUMIN 3.4 gm/dL (3.4-4.8); ALKALINE PHOSPHATASE 78 U/L (40-150); ANION GAP 8 mmol/L (7-16); AST,SGOT 14 U/L (5-34); BILIRUBIN,TOTAL 0.3 mg/dL (0.2-1.2); BLOOD UREA NITROGEN 23 mg/dL (8-26); CALCIUM 9.2 mg/dL (8.4-10.2); CARBON DIOXIDE 23 mmol/L (23-31); CHLORIDE 109 mmol/L (98-107); CREATININE, serum 1.67 mg/dL (0.72-1.25); GLUCOSE 91 mg/dL (70-99); POTASSIUM 4.5 mmol/L (3.5-4.5); SODIUM 140 mmol/L (136-145); TOTAL PROTEIN 7.2 gm/dL (6.2-8.1)
[2023-12-08 09:46] LABS: ERYTHROCYTE SEDIMENTATION RATE 35 mm/hr (0-30)
[2023-12-08 09:53] LABS: ALANINE AMINOTRANSFERASE < 6 U/L (0-55)
--- NOTE | 2023-12-08 10:06 | NUR ---
pt tolerated recovery period well. dressing remains clean dry and intact upon discharge. pt vs remained within normal limits and pt ambulated independently to main lobby upon discharge, accompanied by . pt free from acute concerns and complaints at time of discharge. pt observed for 30 minutes following PICC removal.
== END 2023-12-08 10:30 | disposition home or self-care (01) ==
LOC: EUO 09:00
PROVIDERS: Hospitalist; Student in an Organized Health Care Education/Training Program
DX: T84.54XD Infection and inflammatory reaction due to internal left knee prosthesis, subsequent encounter (principal)

== ENCOUNTER 2024-06-05 14:24 | Emergency (ER) | payer MEDICARE, OTHER ==
[~2024-06-05] VITALS: Ht 180.3 cm; Wt 90.9 kg
[~2024-06-05 14:24] MED LIST changes: +ASPI325T6 PO; +FLOMAX 0.40.4 MG/CAP PO; +HEPARIN LOCK FLU IV; +LEADER CLE17 GM/Dose PO; +NORMAL SALINE F10 ML IV; +SLOW FE137 M1 PO; +TYLENOL 500MG500 MG PO; +[UNRECOGNIZED DRUG - OTHER] PO
[2024-06-05] MEDS ORDERED: NS 1,000 ML IV ONE (14:30)
[2024-06-05 14:43] LABS: BASO # 0.1 K/mm3 (0.0-0.2); BASO % 1.2 % (0.0-2.0); EOS # 0.5 K/mm3 (0.0-0.7); GRAN # 5.2 K/mm3 (1.4-6.5); HEMOGLOBIN 10.5 g/dl (13.5-18.0); LYMPH # 1.2 K/mm3 (1.2-3.4); LYMPH % 15.7 % (20.0-51.0); MEAN CELL VOLUME 85 fl (80.0-100.0); MEAN CORPUSCULAR HEMOGLOBIN 28 pg (27-31); MEAN CORPUSCULAR HGB CONC 33 g/dl (33.0-37.0); MEAN PLATELET VOLUME 9.9 fl (7.4-10.4); MONO # 0.6 K/mm3 (0.1-0.6); MONO % 7.4 % (1.7-9.3); PLATELET COUNT 235 K/mm3 (130-400); RED BLOOD COUNT 3.79 M/mm3 (4.20-5.60); REDCELL DISTRIBUTION WIDTH-CV 14.8 % (11.5-14.5)
[2024-06-05 14:44] LABS: HEMATOCRIT 32.2 % (42.0-52.0)
[2024-06-05 14:45] VITALS: TEMP 98.3
[2024-06-05] MEDS ORDERED: NS 100 ML IV ONE (14:46)
[2024-06-05 14:47] LABS: PROTHROMBIN TIME 11.1 SECONDS (9.7-12.8)
[2024-06-05] MEDS ORDERED: Iohexol 350 - 100 ML VIAL IV ONE (14:47)
[2024-06-05 15:01] LABS: ALBUMIN 3.5 g/dL (3.4-4.8); ALKALINE PHOSPHATASE 102 U/L (40-150); ANION GAP 8 mmol/L (7-16); AST,SGOT 15 U/L (5-34); BILIRUBIN,TOTAL 0.4 mg/dL (0.2-1.2); BLOOD UREA NITROGEN 24 mg/dL (8-26); CALCIUM 8.8 mg/dL (8.4-10.2); CHLORIDE 109 mEq/L (98-107); CREATININE, serum 1.72 mg/dL (0.72-1.25); GLUCOSE 188 mg/dL (70-99); POTASSIUM 4.2 mEq/L (3.5-4.5); SODIUM 140 mEq/L (136-145); TOTAL PROTEIN 7.4 g/dl (6.2-8.1)
[2024-06-05 15:04] LABS: ALANINE AMINOTRANSFERASE < 6 U/L (0-55)
[2024-06-05 15:26] LABS: COLLECTION METHOD CLEAN CATCH
[2024-06-05] MEDS ORDERED: hydrALAZINE 20 MG/ML 1 ML VIAL IV ONE (15:30)
[2024-06-05] MEDS ORDERED: Tenecteplase 50 MG/10 ML VIAL (after reconstitution) IV ONE (15:30)
[2024-06-05 15:42] LABS: PH 5.5 (5.0-8.5); URINE APPEARANCE CLEAR (CLEAR/HAZY); URINE BLOOD NEGATIVE (NEGATIVE); URINE COLOR YELLOW (YELLOW); URINE GLUCOSE NEGATIVE (NEGATIVE); URINE KETONE NEGATIVE (NEGATIVE); URINE NITRATE NEGATIVE (NEGATIVE); URINE PROTEIN(semi-quant) 1+ (NEGATIVE); URINE UROBILINOGEN 0.2 E.U/dL (0.2-1.0)
[2024-06-05 15:44] LABS: TRICYCLIC ANTIDEPRESS URINE NEGATIVE (NEGATIVE)
[2024-06-05 17:34] VITALS: BP 154/94; PULSE 56
== END 2024-06-05 17:36 | disposition short-term general hospital (02) ==
LOC: COL.ER 14:24
PROVIDERS: Personal Emergency Response Attendant
DX: I63.9 Cerebral infarction, unspecified (principal); Z79.82 Long term (current) use of aspirin
CPT/HCPCS: J0360; J3101; J7030; Q9967

== ENCOUNTER → 2024-08-17 | Outpatient (CLI) | payer MEDICARE, OTHER ==
--- NOTE | 2024-08-12 11:29 | NUR ---
lmom with instructions and call back number.
[~2024-08-17] VITALS: Ht 180.3 cm; Wt 80.0 kg
[~2024-08-17] MED LIST changes: +ARICEPT 5MG PO; +NATURAL IRON65 MG PO; +PROZAC 20MG20 MG PO
[2024-08-17 10:26] VITALS: BP 111/85; PULSE 61; TEMP 97.8
--- NOTE | 2024-08-17 10:31 | NUR ---
PATIENT IS NOT ABLE TO SPEAK. STATES THIS IS DUE TO A CVA. PATIENT CAN FOLLOW DIRECTIONS AND STATES THAT PATIENT CAN UNDERSTAND WHAT IS BEING SAID TO HIM.
[2024-08-17 11:45] VITALS: BP 128/64; PULSE 60
--- NOTE | 2024-08-17 12:11 | NUR ---
PATIENT IS AWAKE AND ALERT AND DENIES ANY PAIN. BANDAGE IS CLEAN, DRY, AND INTACT. PATIENT DECLINES ANY FOOD OR DRINK. PATIENT HAS COMPLETED HIS RECOVERY PERIOD WITHOUT ANY ISSUES. PATIENT DRESSED WITH ASSISTANCE FROM HIS . ESCORTED PATIENT AND HIS OFF THE UNIT WITH ALL OF THEIR BELONGINGS. ALL NEEDS MET.
== END ==
LOC: COL.RAD 09:45
DX: K11.8 Other diseases of salivary glands (principal)

== ENCOUNTER 2024-08-26 07:41 | Outpatient (RCR) | payer MEDICARE, OTHER | END 2024-08-29 | disposition home or self-care (01) | LOC: WSST → MKS.ESL.PT 08-30 08:00 | DX: Z86.73 Personal history of transient ischemic attack (TIA), and cerebral infarction without residual deficits (principal) ==